=== PATIENT | female | born 1965 | race Caucasian/White ===

== ENCOUNTER 2023-10-29 22:06 | Emergency (ER) | payer OTHER, SELFPAY ==
[2023-10-29 22:07] VITALS: BP 132/70; PULSE 67; RESP 18; TEMP 36.6; O2SAT 98; BMI 25.4
--- NOTE | 2023-10-29 22:50 | RAD_ITS ---
STUDY: X-RAY - PELVIS AND RIGHT HIP REASON FOR EXAM: Female, 58 years old. fall TECHNIQUE: 3 views of the pelvis and hip. COMPARISON: None. FINDINGS: There is a non-specific bowel gas pattern. Normal visualized soft tissue structures. Normal bilateral iliac wings, sacroiliac joints and visualized sacrum. Normal bilateral superior and inferior pubic rami. Normal pubic symphysis. Normal bilateral ischial tuberosities. Normal visualized femoral head. Normal acetabulum. Normal hip joint. RAD/HIP, UNI W/ Pelvis 2-3 Views IMPRESSION: Normal x-ray examination of the pelvis and hip. Electronically Signed: Roosevelt Rojas MD at 23:53 EDT ,
[2023-10-29 23:37] VITALS: BP 141/84; PULSE 69; RESP 16; O2SAT 97
[2023-10-30] MEDS: Oxycodone/Apap 5/325 Tablet PO (02:33)
--- NOTE | 2023-10-30 02:54 | EDS_ITS ---
HPI History of Present Illness Chief Complaint: Fall Informant: patient and family Narrative Narrative: Patient is a 58-year-old female with past medical history of hypertension and hypothyroidism. She states that today around 7 or 8 PM she was riding a horse when she fell and landed on her right side. She denies striking her head any loss of consciousness or history of bleeding disorder or blood thinner use. She states that she landed mainly on her right side/hip. She states she was able to get up and walk back to the house after the fall. However as time is passed she has had increased pain to the right hip region which makes it difficult to ambulate and with concern for underlying trauma presents for evaluation. [facility] Medical History (Updated 10/30/23 @ 22:[address] Toro Garcia, DO) [place] syndrome Depression Hypothyroid HTN (hypertension) Home Medications ?Medication ?Instructions ?Recorded ?Last Taken ?Type methocarbamol 500 mg tablet 500 mg PO 4X/DAY PRN Muscle 10/30/23 Unknown Rx pain/spasm #40 tabs oxycodone-acetaminophen 5 mg-325 1 tab PO Q6H PRN pain 3 days #12 10/30/23 Unknown Rx mg tablet (Percocet) tabs Allergy/AdvReac Type Severity Reaction Status Date / Time ciprofloxacin AdvReac Hives Verified 10/29/23 22:08 diphenhydramine AdvReac Other Verified 10/29/23 22:08 Social History Smoking Status: Never smoker [facility] ED Constitutional Constitutional ED: Denies chills or fever(s) Eyes Eyes: Denies change in vision or diplopia ENT ENT ED: Denies sore throat Cardiovascular Cardiovascular: Denies chest pain Respiratory/Chest Respiratory/Chest: Denies cough or dyspnea Gastrointestinal Gastrointestinal: Denies abdominal pain, diarrhea, nausea or vomiting Genitourinary Genitourinary ED: Denies dysuria or hematuria Musculoskeletal Musculoskeletal: Reports other Details: Positive right hip pain ; Denies back pain or neck pain Integumentary Denies Abrasions or rash Neurologic Neurologic: Denies headache(s), paresthesias or weakness Hematologic/Lymphatic Hematologic/Lymphatic: Denies easy bleeding or easy bruising EXAM Physical Exam Const Vital Signs: 10/29/23 23:36 10/29/23 23:37 10/30/23 03:06 Temperature 97.6 F L Pulse Rate 69 69 Respiratory Rate 16 16 Respiratory Effort Normal Non-Labored Respiratory Depth Normal Respiratory Pattern Normal Blood Pressure 141/84 H 141/84 H Blood Pressure Mean 103 103 Pulse Ox 97 97 Oxygen Delivery Method Room Air Room Air Positive well nourished and well developed General Appearance ED: well developed; Negative for pallor HEENT HEENT Narrative: Normocephalic atraumatic No signs of depressed or basilar skull fracture Eyes PERRL and EOMs intact bilaterally Neck supple Neck Narrative: No bony deformity or step-off of the cervical spine no midline tenderness to palpation Chest Wall palpation of chest normal Chest Narrative: No bony deformity or crepitance of the chest wall no pain with palpation Resp normal respiratory effort and clear to auscultation bilaterally Cardio regular rate and regular rhythm GI normal to inspection, nondistended, normoactive bowel sounds, non-tender, non- distended and no masses GI Narrative: No voluntary guarding or rigidity or pulsatile mass No overlying abrasions or ecchymosis or hematoma noted Auscultation: normoactive bowel sounds Palpation: soft Back/Spine Back/Spine Narrative: No bony deformity or step-off of the cervical thoracic or lumbar spine no midline tenderness to palpation Extremity Extremity Narrative: Pelvis is stable there is no shortening or external rotation of either lower extremity Patient has pain on palpation along the right greater trochanter. Active range of motion is decreased secondary to pain. There is no obvious bony deformity or joint effusion. No pain on palpation along the pubic rami. Pain worsens with external rotation and abduction. Compartments are soft and compressible going against compartment syndrome.. No overlying erythema warmth abrasions or ecchymosis. Neuro oriented x3, CN's II-XII intact bilaterally and no sensory deficits noted Sensorium / Orientation: alert Psych mental status grossly normal Skin no rashes or lesions noted and no wounds General Skin Exam: Negative for jaundice or pallor MDM MDM MDM Narrative Medical decision making narrative: Patient arrived to the ER mildly hypertensive but has a past medical history of this. She reported a mechanical fall and therefore I felt no need for cardiac or syncope workup. She denies striking her head any loss of consciousness or history of bleeding disorder or blood thinner use. Also injury occurred multiple hours ago and she has a normal neurologic exam with no signs of depres sed or basilar skull fracture. Therefore my concern for underlying skull fracture versus subdural or epidural hematoma is low and I do not feel there is need for head CT. Patient also does not have any pain on palpation of her cervical spine and can move her neck in all directions so concern for compression fracture versus spinal thesis is low and there is no need for imaging studies. With main differential being hip contusion versus femoral neck fracture versus pubic rami fracture I did elect to perform a 1 view pelvis with right hip x-ray. X-ray revealed no obvious signs of trauma. The patient was able to ambulate in the ER. Therefore this time as workup and exam is most consistent with hip contusion and and she has no signs of compartment syndrome or neurovascular compromise or ligamentous/tendon injury she can given symptomatic medication and is otherwise safe for discharge History & Record Review Discussion w/independent historian: Patient and Family Radiography Diagnostic Testing: Clinical Impression(s) from Imaging Studies Hip/Pelvis X-Ray 10/29/23 22:50 IMPRESSION: Normal x-ray examination of the pelvis and hip. Electronically Signed: Roosevelt Rojas MD at 23:53 EDT , 1 view pelvis with right hip x-ray as interpreted by the emergency medicine physician reveals no acute fracture dislocation joint effusion or retained foreign body Discharge Plan Triage Chief Complaint: Fall ED Provider: Toro Garcia Dx/Rx/DC Orders Clinical Impression: Contusion of right hip, Hypertension, Hypothyroidism Instructions: ED Hip Contusion Prescriptions: New oxycodone-acetaminophen [Percocet] 5-325 mg tablet 1 tab PO Q6H PRN (Reason: pain) 3 Days Qty: 12 0RF methocarbamol 500 mg tablet 500 mg PO 4X/DAY PRN (Reason: Muscle pain/spasm) Qty: 40 0RF Primary Care Provider: LEIGH ANN FOSS Referrals: LEIGH ANN FOSS [Other] Activity Restrictions/Additional Instructions: Your x-rays do not show any acute fracture or dislocation and this correlates with your physical exam indicating you have a deep bone bruise to your hip. Use the crutches to help with weightbearing and ice the area to reduce pain and speed healing. Return to the ER should you have any further concerns Print Language: [place] Islander Disposition Disposition: Home, Self Care Discharge Date/Time: 10/30/23 03:07
[2023-10-30 03:06] VITALS: BP 141/84; PULSE 69; RESP 16; TEMP 36.4; O2SAT 97
== END 2023-10-30 03:07 | disposition home or self-care (01) ==
PROVIDERS: Emergency Provider Emergency Medicine; Visit Provider Emergency Medicine
DX: S70.01XA Contusion of right hip, initial encounter (principal); I10 Essential (primary) hypertension; E03.9 Hypothyroidism, unspecified; V80.010A Animal-rider injured by fall from or being thrown from horse in noncollision accident, initial encounter; Y93.52 Activity, horseback riding
CPT/HCPCS: 73502; 99283